=== PATIENT | female | born 1995 | race African-American/Black ===

== ENCOUNTER 2020-09-16 20:53 | Emergency (ER) | payer OTHER ==
[~2020-09-16] VITALS: Ht 152.4 cm; Wt 53.0 kg
[2020-09-16 21:06] VITALS: BP 132/82
[2020-09-16] MEDS ORDERED: LIDOCAINE HCL/EPINEPHRINE 1%-EPI 1:100,000 20 ML VIAL INFIL ONE (21:30)
[2020-09-16] MEDS ORDERED: LIDOCAINE 1%/EPI 1:200,000 10 ML VIAL IJ NR (21:45)
[2020-09-16] MEDS ORDERED: TETANUS, DIPHTHERIA, PERTUSSIS VAC/PF 0.5ML (>7YR OLD) IM ONE (23:00)
[2020-09-16] MEDS ORDERED: ACETAMINOPHEN WITH CODEINE 300/30MG TABLET PO ONE (23:30)
[2020-09-17] MEDS ORDERED: ACETAMINOPHEN WITH CODEINE 300/30MG TABLET PO ONE (03:15)
[2020-09-17] MEDS ORDERED: BACITRACIN ZINC OINT UDPKT TOP ONE (04:00)
== END 2020-09-17 06:30 | disposition home or self-care (01) ==
LOC: ER 20:53
DX: S51.812A Laceration without foreign body of left forearm, initial encounter (principal); S51.811A Laceration without foreign body of right forearm, initial encounter; Y08.89XA Assault by other specified means, initial encounter; Y93.89 Activity, other specified; Y92.89 Other specified places as the place of occurrence of the external cause; Y99.8 Other external cause status
CPT/HCPCS: 90471; 90715; 99284; J3490